=== PATIENT | female | born 1990 | race Hispanic/Latino ===

== ENCOUNTER 2018-09-29 19:28 | Inpatient (IN) ==
[2018-09-29 20:28] LABS: URINE SOURCE VOIDED
[2018-09-29 20:33] LABS: BASO# 0.01 X1000 (0.0-0.2); BASO% 0.1 % (0.0-0.8); EOS# 0.06 X1000 (0.0-0.7); EOS% 0.5 % (0.0-10.0); HEMATOCRIT 33.7 % (37.0-47.0); HEMOGLOBIN 11.7 g/dL (12.0-16.0); IMM GRAN# 0.03 X1000 (0.0-0.04); IMM GRAN% 0.3 % (0.0-0.5); LYMPH# 2.09 X1000 (1.2-3.4); LYMPH% 18.5 % (20.5-51.1); MCH 28.7 PG (27-31); MCHC 34.7 g/dL (33-37); MCV 82.6 FL (81-99); MONO# 0.82 X1000 (0.11-0.59); MONO% 7.2 % (1.7-9.3); MPV 12.1 FL (7.4-10.4); NEUT# 8.31 X1000 (1.4-6.5); NEUT% 73.4 % (42.2-75.2); PLT 275 X1000 (130-400); RBC 4.08 XMIL (4.2-5.4); RDW 12.9 % (11.5-14.5); WBC 11.32 X1000 (4.8-10.8)
[2018-09-29 20:40] LABS: BILIRUBIN URINE NEGATIVE (NEGATIVE); BLOOD URINE 2+ (NEGATIVE); CLARITY CLEAR (CLEAR); COLOR YELLOW; GLUCOSE URINE NEGATIVE (NEGATIVE); KETONE URINE NEGATIVE (NEGATIVE); LEUKOCYTES URINE 2+ (NEGATIVE); NITRITE URINE NEGATIVE (NEGATIVE); PH URINE 6.5; PROTEIN URINE NEGATIVE (NEGATIVE); UROBILINOGEN URINE NORMAL
[2018-09-29 20:45] LABS: UR AMPHETAMINES QUAL NONE DETECTED (NONE DETECT); UR BARBITUATES QUAL NONE DETECTED (NONE DETECT); UR BENZODIAZEPIN QUAL NONE DETECTED (NONE DETECT); UR CANNABINOIDS QUAL NONE DETECTED (NONE DETECT); UR COCAINE QUAL NONE DETECTED (NONE DETECT); UR METHADONE QUAL NONE DETECTED (NONE DETECT); UR METHAMPHETAMINE QUAL NONE DETECTED (NONE DETECT); UR OPIATES QUAL NONE DETECTED (NONE DETECT); UR OXYCODONE QUAL NONE DETECTED (NONE DETECT); UR PCP QUAL NONE DETECTED (NONE DETECT); UR PROPOXYPHENE QUAL NONE DETECTED (NONE DETECT); UR TCA QUAL NONE DETECTED (NONE DETECT)
[2018-09-29 20:52] LABS: RPR NON-REACTIVE (NONREACTIVE)
[2018-09-29] MEDS ORDERED: PEPCID PO ONE (20:54)
[2018-09-29] MEDS ORDERED: REGLAN PO ONE (20:54)
[2018-09-29] MEDS ORDERED: PEPCID IV PRN (20:54)
[2018-09-29] MEDS ORDERED: ZOFRAN IV PRN (20:54)
[2018-09-29] MEDS ORDERED: PEPCID PO PRN (20:54)
[2018-09-29] MEDS ORDERED: KEFZOL 1 GM/D5W 1 GM/50 ML IVPB IV PRN (20:54)
[2018-09-29] MEDS ORDERED: STADOL IV PRN (20:54)
[2018-09-29] MEDS ORDERED: AMPICILLIN 2 GM/NS 2 GM/100 ML IVPB IV ONE (20:54)
[2018-09-29] MEDS ORDERED: TYLENOL PO PRN (20:54)
[2018-09-29 21:00] LABS: RAPID HIV PRESUMPTIVE NEGATIVE
[2018-09-29] MEDS ORDERED: PITOCIN 30 UNITS/NS 30 UNIT/500 ML IV.SOLN IV SCH (21:00)
[2018-09-29] MEDS ORDERED: LR 1,000 ML IV SCH (21:00)
[2018-09-29] MEDS ORDERED: SODIUM CHLORIDE 0.9% INJ SCH (21:00)
[2018-09-29] MEDS ORDERED: PHENERGAN IV PRN (21:24)
[2018-09-29] MEDS ORDERED: SODIUM CHLORIDE 0.9% INJ PRN (21:24)
[2018-09-29 22:16] LABS: RUBELLA SCREEN NON IMMUNE (IMMUNE)
[2018-09-29] MEDS ORDERED: XYLOCAINE-MPF 1% INJ ONE (22:23)
[2018-09-29] MEDS ORDERED: MINERAL OIL MISC ONE (22:24)
[2018-09-30] MEDS ORDERED: AMPICILLIN 1 GM/NS 1 GM/50 ML IVPB IV SCH (00:56)
[2018-09-30] MEDS ORDERED: PITOCIN ONE (01:10)
--- NOTE | 2018-09-30 01:28 | OB/GYN PROGRESS NOTE ---
Progress Note OB - . OB Progress Note: Laboratory Results - last 24 hr 09/29/18 09/29/18 09/29/18 19:30 19:30 20:15 WBC RBC Hgb Hct MCV MCH MCHC RDW Std Deviation Plt Count MPV Immature Gran % (Auto) Neut % (Auto) Lymph % (Auto) [place] % (Auto) Eos % (Auto) Baso % (Auto) Immature Gran # (Auto) Neut # (Auto) Lymph # (Auto) [place] # (Auto) Eos # (Auto) Baso # (Auto) Glucose 90 Urine Source VOIDED Urine Color YELLOW Urine Clarity CLEAR Urine pH 6.5 Ur Specific [place] 1.000 Urine Protein NEGATIVE Urine Ketones NEGATIVE Urine Blood 2+ A Urine Nitrite NEGATIVE Urine Bilirubin NEGATIVE Urine Urobilinogen NORMAL Urine WBC 2+ A Urine Glucose NEGATIVE Membranes Rupture Urine Opiates Screen NONE DETECTED Ur Oxycodone Screen NONE DETECTED Urine Methadone Screen NONE DETECTED U Propoxyphene Qual NONE DETECTED Ur Barbituates Screen NONE DETECTED Ur Tricyclics Screen NONE DETECTED Ur Phencyclidine Scrn NONE DETECTED Ur Amphetamines Screen NONE DETECTED U Methamphetamines Scrn NONE DETECTED U Benzodiazepines Scrn NONE DETECTED Urine Cocaine Screen NONE DETECTED U Cannabinoids Screen NONE DETECTED RPR HIV 1&2 Antibody Rapid Rubella Immunity Screen Blood Type Antibody Screen 09/29/18 09/29/18 09/29/18 20:15 20:15 20:15 WBC 11.32 H RBC 4.08 L Hgb 11.7 L Hct 33.7 L MCV 82.6 MCH 28.7 MCHC 34.7 RDW Std Deviation 12.9 Plt Count 275 MPV 12.1 H Immature Gran % (Auto) 0.3 Neut % (Auto) 73.4 Lymph % (Auto) 18.5 L [place] % (Auto) 7.2 Eos % (Auto) 0.5 Baso % (Auto) 0.1 Immature Gran # (Auto) 0.03 Neut # (Auto) 8.31 H Lymph # (Auto) 2.09 [place] # (Auto) 0.82 H Eos # (Auto) 0.06 Baso # (Auto) 0.01 Glucose Urine Source Urine Color Urine Clarity Urine pH Ur Specific [place] Urine Protein Urine Ketones Urine Blood Urine Nitrite Urine Bilirubin Urine Urobilinogen Urine WBC Urine Glucose Membranes Rupture Urine Opiates Screen Ur Oxycodone Screen Urine Methadone Screen U Propoxyphene Qual Ur Barbituates Screen Ur Tricyclics Screen Ur Phencyclidine Scrn Ur Amphetamines Screen U Methamphetamines Scrn U Benzodiazepines Scrn Urine Cocaine Screen U Cannabinoids Screen RPR NON-REACTIVE HIV 1&2 Antibody Rapid PRESUMPTIVE NEGATIVE Rubella Immunity Screen NON IMMUNE H Blood Type O POSITIVE Antibody Screen NEGATIVE 09/29/18 20:20 WBC RBC Hgb Hct MCV MCH MCHC RDW Std Deviation Plt Count MPV Immature Gran % (Auto) Neut % (Auto) Lymph % (Auto) [place] % (Auto) Eos % (Auto) Baso % (Auto) Immature Gran # (Auto) Neut # (Auto) Lymph # (Auto) [place] # (Auto) Eos # (Auto) Baso # (Auto) Glucose Urine Source Urine Color Urine Clarity Urine pH Ur Specific [place] Urine Protein Urine Ketones Urine Blood Urine Nitrite Urine Bilirubin Urine Urobilinogen Urine WBC Urine Glucose Membranes Rupture POSITIVE Urine Opiates Screen Ur Oxycodone Screen Urine Methadone Screen U Propoxyphene Qual Ur Barbituates Screen Ur Tricyclics Screen Ur Phencyclidine Scrn Ur Amphetamines Screen U Methamphetamines Scrn U Benzodiazepines Scrn Urine Cocaine Screen U Cannabinoids Screen RPR HIV 1&2 Antibody Rapid Rubella Immunity Screen Blood Type Antibody Screen Delivery Note: Patient presented in labor and progressed to complete dilation. She received one dose of stadol for pain. Patient was delivered via of a LVFI weighing 5lbs 15 ounces with apgars of 8 and 9 at 1 and 5 minutes respectively. No nuchal cord. infant had cord wrapped around its leg. Small first degree l aceration hemostatic not sutured. placenta delivered spontaneously. EBL 200 cc. appeared to be intact. Infant to Nursery. Mother tolerated the procedure well.
[2018-09-30] MEDS ORDERED: CYTOTEC PO PRN (01:29)
[2018-09-30] MEDS ORDERED: HYDROXYZINE IM PRN (01:29)
[2018-09-30] MEDS ORDERED: PERI MEDS (DERMOPLAST/NUPERCAINAL/TUCKS) MISC PRN (01:29)
[2018-09-30] MEDS ORDERED: MINERAL OIL PO PRN (01:29)
[2018-09-30] MEDS ORDERED: M-M-R II VACCINE SUBQ ONE (01:29)
[2018-09-30] MEDS ORDERED: BENADRYL PO PRN (01:29)
[2018-09-30] MEDS ORDERED: BOOSTRIX VACCINE IM ONE (01:29)
[2018-09-30] MEDS ORDERED: XYLOCAINE-MPF 1% INJ PRN (01:29)
[2018-09-30] MEDS ORDERED: MOTRIN PO PRN (01:29)
[2018-09-30] MEDS ORDERED: AMBIEN PO PRN (01:29)
[2018-09-30] MEDS ORDERED: BENADRYL IV PRN (01:29)
[2018-09-30] MEDS ORDERED: PITOCIN IM PRN (01:29)
[2018-09-30] MEDS ORDERED: ATARAX PO PRN (01:29)
[2018-09-30] MEDS ORDERED: PITOCIN 30 UNITS/NS 30 UNIT/500 ML IV.SOLN IV SCH (01:30)
[2018-09-30] MEDS ORDERED: PITOCIN 20 UNITS/NS 20 UNITS/1,000 ML IV.SOLN IV SCH (01:30)
--- NOTE | 2018-09-30 03:56 | HISTORY AND PHYSICAL ---
HISTORY OF PRESENT ILLNESS: The patient is to be admitted as a 27-year-old G3, P2-0-0-2 with an intrauterine at term, who presents with complaints of leakage of fluid and abdominal contractions. The patient has no care. She reports that she did have 2 ultrasounds, however. She reports her water broke this morning at about 9 o'clock. She was having contractions, so she came in this evening. The patient gives no other history. There is some difficulty with communication. The labor relations representative is unable to translate, because the patient speaks [place] and some [place], and the nremt is not comfortable. So we have been trying the best we can to understand what the patient is saying. OBSTETRICAL HISTORY: Per patient, she has had 3 pregnancies, 2 babies, 1 here and 1 in [facility]. GYNECOLOGICAL HISTORY: No history. FAMILY HISTORY: Noncontributory. Patient reports she has no medical problems. ALLERGIES: No known drug allergies. SOCIAL HISTORY: She does not smoke or drink. PHYSICAL EXAMINATION: VITAL SIGNS: Stable. Her blood pressure is 120/70, pulse is 78, respirations 18, and O2 saturations 97%, temperature 97.3 degrees. GENERAL: Patient is awake, alert, oriented x3, in moderate distress with contractions. HEENT: Patient is normocephalic, atraumatic. CARDIOVASCULAR: S1, S2 is normal. LUNGS: Clear. ABDOMEN: Gravid uterus. Positive bowel sounds. PELVIC: Cervical exam patient is 3 cm, about 80% effaced, -1. No palpable bag of fluid. EXTREMITIES: Patient has no edema. DIAGNOSTIC DATA: On bedside ultrasound, fetus is vertex. ASSESSMENT AND PLAN: Intrauterine at term, in labor. Unknown group B streptococcus with no known care. Labs. Start GBS prophylaxis for unknown GBS. The patient desires pain medication in her IV. She reports she will let us know if she wants an epidural. Expect a vaginal delivery. cc: Rico Parsons MD
[2018-09-30 18:30] LABS: HIV ANTIBODY SCREEN SEE COMMENTS
[2018-09-30] MEDS: PERICOLACE PO SCH (21:13)
[2018-10-01 05:22] LABS: BASO# 0.02 X1000 (0.0-0.2); BASO% 0.2 % (0.0-0.8); EOS# 0.08 X1000 (0.0-0.7); EOS% 0.7 % (0.0-10.0); HEMATOCRIT 31.2 % (37.0-47.0); HEMOGLOBIN 10.6 g/dL (12.0-16.0); IMM GRAN# 0.12 X1000 (0.0-0.04); LYMPH# 2.65 X1000 (1.2-3.4); MCH 28.7 PG (27-31); MCV 84.6 FL (81-99); MONO# 0.74 X1000 (0.11-0.59); MONO% 6.1 % (1.7-9.3); MPV 11.7 FL (7.4-10.4); NEUT# 8.43 X1000 (1.4-6.5); PLT 237 X1000 (130-400); RBC 3.69 XMIL (4.2-5.4); RDW 13.3 % (11.5-14.5); WBC 12.04 X1000 (4.8-10.8)
[2018-10-01 08:54] LABS: HEPATITIS B SURFACE ANTIGEN SEE COMMENTS
[2018-10-01] MEDS: PERICOLACE PO SCH (21:19)
--- NOTE | 2018-10-02 07:43 | OB/GYN PROGRESS NOTE ---
Progress Note OB - . Patient Problems: Current Active Problems Problem Status Onset Vaginal delivery Acute OB Progress Note: Vital Signs - 24 hr 10/01/18 08:09 10/01/18 16:15 10/01/18 20:03 Temperature 96.7 F L 96.8 F L 97.3 F L Pulse Rate 60 66 82 Respiratory Rate 16 18 16 Blood Pressure 113/58 105/55 108/56 O2 Sat by Pulse Oximetry 97 97 95 10/02/18 00:00 Temperature 96.6 F L Pulse Rate 68 Respiratory Rate 16 Blood Pressure 120/64 O2 Sat by Pulse Oximetry 96 Laboratory Results - last 24 hr 09/29/18 09/29/18 19:30 20:15 Ur Chlamydia/GC DNA SEE COMMENTS Hep Bs Antigen SEE COMMENTS HPI: Pt seen and examined. Currently w/o complaints. Pain well controlled. Ambulating and urinating w/o difficulty. Tolerating regular diet. Bottle feeding baby. Decreased lochia. VS: please see above GEN: NAD, resting in bed CV: RRR, +S1S2 RESP: CTA b/l ABD: soft NTTP , FF below umbilicus EXT: neg edema, neg CT LABS: please see above ASSESSMENT: 27 yo PPD#2 s/p PLAN: -routine PP care -plan for d/c home today
[2018-10-02 07:57] VITALS: BP 111/70
[2018-10-02] MEDS: FERROUS SULFATE PO SCH ×2 (09:12)
== END 2018-10-02 10:50 | disposition home or self-care (01) | DRG 807 ==
LOC: P.OPLD 19:28 → P.LD 19:39
PROVIDERS: ADMIT Obstetrics & Gynecology; ATTEND Obstetrics & Gynecology
CPT/HCPCS: 80104; 80301; 80305; 81003; 82947; 84112; 85025; 86592; 86701; 86703; 86762; 86850; 86900; 86901; 87340; 87389; 87390; 87491; 87591; 90707; 90715; A9270; G0431; G0434; G0477; J0290; J0595; J2550; J2590; J7120